=== PATIENT | male | born 1975 | race Caucasian/White ===

== ENCOUNTER 2018-05-27 22:17 | Emergency (ER) | payer OTHER ==
[~2018-05-27] VITALS: Ht 177.8 cm; Wt 115.9 kg
[2018-05-28] MEDS ORDERED: CeFAZolin 1 GM/DEXTROSE 50 ML IV ONE (01:00)
[2018-05-28] MEDS ORDERED: MUPIROCIN CALCIUM 2% 22 GM OINTMENT TP ONE (01:00)
[2018-05-28 01:25] VITALS: BP 135/83
[2018-05-28 01:25] LABS: GLUCOSE,POINT OF CARE 293 MG/DL (70-110)
== END 2018-05-28 02:51 | disposition home or self-care (01) ==
LOC: EMS 22:19
DX: S90.821A Blister (nonthermal), right foot, initial encounter (principal); S90.822A Blister (nonthermal), left foot, initial encounter; L03.115 Cellulitis of right lower limb; F12.90 Cannabis use, unspecified, uncomplicated; X58.XXXA Exposure to other specified factors, initial encounter; Y93.89 Activity, other specified; Y92.89 Other specified places as the place of occurrence of the external cause; Y99.8 Other external cause status
CPT/HCPCS: 82962; 96365; 99283; J0690; 82948